=== PATIENT | female | born 1995 | race Caucasian/White ===

== ENCOUNTER 2020-01-01 09:20 | Emergency (ER) | payer OTHER, SELFPAY ==
[2020-01-01 09:30] VITALS: BP 120/76; PULSE 92; RESP 12; TEMP 36.4; O2SAT 99
[2020-01-01] MEDS: ONDANSETRON HCL ODT 4 MG TABLET PO (09:47)
--- NOTE | 2020-01-01 10:10 | ED.NAVMDI ---
HPI - Nausea/Vomiting/Diarrhea General Chief complaint: Nausea/Vomiting/Diarrhea Stated complaint: vomiting/diarrhea Source: patient and RN notes reviewed Limitations: no limitations History of Present Illness HPI Narrative: The patient, a non-smoker/nondrinker with prior appendectomy, presents with vomiting. Patient states she is a G1, P1 and had a test last week. Last 2 days patient notes non-bilious emesis x4-5, associated with diarrhea x3-4. No fever, travel, cough, sore throat, sick family, frequency/urgency/dysuria. Symptoms are mild worse upon eating. Zdtgf-zo-egsw testing is positive, and she has used Zofran in the past for hyperemesis which she prefers. Patient advised will be given 2 anti-emetics and use Compazine preferentially; to go [facility] for covid testing [because of diarrhea], and emergency if worsens Related Data Home Medications Medication Instructions Recorded Confirmed cetirizine 10 mg PO BID 01/01/20 01/01/20 levothyroxine 0.25 mcg PO DAILY 01/01/20 montelukast [Singulair] 10 mg PO DAILY 01/01/20 01/01/20 Allergies Allergy/AdvReac Type Severity Reaction Status Date / Time amoxicillin Allergy Unknown . Verified 04/30/17 21:20 Penicillins Allergy Unknown Verified 11/30/13 10:21 Review of Systems Review of Systems: Narrative: General/Constitutional: No weight loss,fever Eyes: N0: Redness,discharge Ears/Nose/Throat: No: Epistaxis,ear discharge Respiratory: Denies: Hemoptysis Gastrointestinal: ++ Vomiting, Bleeding-rectal Skin: No Lumps, eruption Neurologic: No Focal Weakness,Sz Hematologic: Denies: Petechiae/Purpura Psychiatric: No: Suicida ideationl All Other Systems: Reviewed and Negative [facility] Family History Family History (Updated 11/30/13 @ 10:23 by DOCTOR UNKNOWN) Other Diabetes mellitus Family history of cardiovascular disease Social History Social History Smoking status: Never smoker Alcohol intake: never Comments At time of signature, agree with nursing past medical, surgical, social and family history. There is no relevant family history pertinent to the presenting complaint Exam Narrative: Exam Narrative: General Appearance: post emesis appearing, No distress EYE: PERRLA, Conjunctiva clear Ears: External ear normal Nose: Normal nose Mouth/Throat: Normal appearing, Normal lips Neck: Supple Respiratory: Airway patent, No respiratory distress Abdomen: Soft, Non-tender, No massess, No organomegaly (no rebound/ surgical signs), Hyperactive bowel sounds Musculoskeletal: Full ROM Skin: Warm, Dry Neurological: A&O x3, CN II-X intact Psychiatric: Normal mood, Normal affect Course Vital Signs Vital signs: Vital Signs Temperature 97.6 F 01/01/20 09:30 Pulse Rate 92 01/01/20 09:30 Respiratory Rate 12 01/01/20 09:30 Blood Pressure 120/76 01/01/20 09:30 Pulse Oximetry 99 01/01/20 09:30 Temperature 97.6 F 01/01/20 09:30 Pulse Rate 92 01/01/20 09:30 Respiratory Rate 12 01/01/20 09:30 Blood Pressure 120/76 01/01/20 09:30 Pulse Oximetry 99 01/01/20 09:30 MDM - Nausea/Vomiting/Diarrhea Lab Data Labs: UCG Bedside Result Positive Reference Range: Negative Discharge Plan Discharge Clinical Impression: Complication of , antepartum Vomiting Qualifiers: Vomiting type: unspecified Vomiting Intractability: unspecified Nausea presence: with nausea Qualified Code(s): R11.2 - Nausea with vomiting, unspecified Diarrhea Qualifiers: Diarrhea type: unspecified type Qualified Code(s): R19.7 - Diarrhea, unspecified Patient Disposition: Home, Self-Care Condition: Improved Instructions: Acute Nausea and Vomiting (ED) Additional Instructions: Advised to go to higher-level care facility to higher level testing if not improved , because for early diagnosis of serious problems [dehydration, metabolic, etc], clear specific symptoms do not
== END 2020-01-01 10:08 | disposition home or self-care (01) ==
PROVIDERS: Emergency Provider Emergency Medicine; PCP Family Medicine
DX: O21.9 Vomiting of pregnancy, unspecified (principal); O99.89 Other specified diseases and conditions complicating pregnancy, childbirth and the puerperium; R19.7 Diarrhea, unspecified; Z3A.00 Weeks of gestation of pregnancy not specified
CPT/HCPCS: 81025; 87635; 99213; A9270; C9803; G0463; U0003

== ENCOUNTER → 2020-01-01 10:08 | Outpatient (NON) | payer OTHER, SELFPAY ==
[2020-01-01 19:53] LABS: SARS-CoV-2 RNA PCR Negative
== END ==
PROVIDERS: PCP Family Medicine; Visit Provider Emergency Medicine
DX: R11.10 Vomiting, unspecified (principal); Z20.828 Contact with and (suspected) exposure to other viral communicable diseases
CPT/HCPCS: 87635; C9803; U0003

== ENCOUNTER 2020-04-14 08:51 | Outpatient (CLI) | payer OTHER, SELFPAY ==
--- NOTE | ~2020-04-14 | US_ITS ---
EXAMINATION: US OB /maternal detail DATE: 04/14/2020 09:37 INDICATION: anatomic survey. TECHNIQUE: Real-time ultrasound of the pelvis was performed. COMPARISON: None. FINDINGS: There is a single living fetus in breech presentation. The placenta is posterior, 4.3 cm from the ce rvix. heart rate is 142 beats per minute (bpm). The amniotic fluid volume is subjectively zuleima l. The following biometric data were obtained: Biparietal diameter (BPD): 5.1 cm; head circumference (HC): 19.6 cm; abdominal circumference (AC): 18 .5 cm; femur length (FL): 3.6 cm. These measurements are discordant with low FL/AC ratio. Estimated weight is 500 g +/- 75 g, which correlates with 72nd percentile when 08/19/20 is used as estimated date of delivery. As single measurements, these parameters are each equal to the following estimated gestational ages: BPD: 21 weeks 2 days. HC: 21 weeks 5 days. AC: 23 weeks 2 days. FL: 21 weeks 4 days. estimated gestational age based solely on measurements from this exam is 22 weeks 0 days +/- 1 weeks 4 days. The cerebral ventricles, cerebellum, cisterna magna, nuchal fold, and visualized portions of the spin e are normal. The heart is normal. The diaphragm, stomach, kidneys, and bladder are normal. There are two umbilical arteries to yield a 3-vessel cord. The cord insertion is normal. IMPRESSION: 1. Single living fetus in breech presentation. 2. Estimated weight is 500 g +/- 75 g, which correlates with 72nd percentile when 08/19/20 is u sed as estimated date of delivery. 3. Discordant biometrics with low FL/AC ratio. 4. Normal anatomic survey. Reviewed, dictated and finalized at location A. [facility] IMPRESSION: 1. Single living fetus in breech presentation. 2. Estimated weight is 500 g +/- 75 g, which correlates with 72nd percen tile when 08/19/20 is used as estimated date of delivery. 3. Discordant biometrics with low FL/AC ratio. 4. Normal anatomic survey.
== END 2020-04-14 08:52 | disposition home or self-care (01) ==
PROVIDERS: PCP Family Medicine; Visit Provider Obstetrics & Gynecology
DX: Z34.92 Encounter for supervision of normal pregnancy, unspecified, second trimester (principal); Z3A.22 22 weeks gestation of pregnancy
CPT/HCPCS: 76805

== ENCOUNTER 2020-08-03 11:56 | Inpatient (IN) | payer OTHER, SELFPAY ==
[2020-08-03] VITALS (82 sets, daily range): BP systolic 95–150; BP diastolic 52–129; PULSE 79–146; RESP 16–18; TEMP 36.5–36.9; O2SAT 96–100; BMI 27.2
--- NOTE | 2020-08-03 11:56 | LDADM ---
This patient, Tammie Ortiz, was admitted to Labor/Delivery/Recovery 106 on 08/03/20 at 11:56. Plans for labor, pain management and were discussed with patient. Patient/family oriented to hospital policies and general routines including ID bracelet, bed and alarms, visiting hours, pain management, procedures, bathroom and other care routines, personal items, smoking policy, room service/diet and guest tray routines, security routines, and visiting hours. Patient/Family are encouraged to report perceived risks to care and to ask questions if they do not understand what they are told or what they should do. See OBIX for further documentation.
[2020-08-03 12:41] LABS: Basophils Percent Auto 0.1 % (0.2-1.2); Eosinophils Absolute Auto 0.1 K/mm3 (0-0.3); Eosinophils Percent Auto 0.6 % (0-4.4); Hematocrit 28.7 % (37.0-47.0); Immature Granulocyte Absolute 0.05 K/mm3 (0.00-0.031); Immature Granulocyte Percent A 0.5 % (0-0.5); Lymphocytes Absolute Auto 1.77 K/mm3 (0.9-3.2); Lymphocytes Percent Auto 15.9 % (18.3-44.2); Mean Corpuscular HGB Conc 31.4 g/dl (32-36); Mean Corpuscular Hemoglobin 22.9 pg (26-34); Mean Platelet Volume 11.8 fl (7.4-10.4); Monocytes Absolute Auto 0.7 K/mm3 (0.1-0.6); Monocytes Percent Auto 6.3 % (2.6-8.5); Neutrophils Absolute Auto 8.5 K/mm3 (1.3-6.7); Neutrophils Percent Auto 76.6 % (45.5-73.1); Platelet Count Result 194 k/mm3 (150-375); Red Blood Count 3.93 M/mm3 (4.2-5.4); Red Cell Distribution Width 14.6 % (11.5-14.5); White Blood Count 11.1 K/mm3 (4.5-10.0)
[2020-08-03] MEDS: LACTATED RINGERS 1,000 ML 125 ML IV CONT ×2 (12:45→13:09)
--- NOTE | 2020-08-03 12:59 | P.PNAN_ITS ---
Anes - Initial Pre Proc Eval Procedure: labor epidural Date/Time: 08/03/20 12:59 Surgeon: Darryl Corley MD Pre Op Diagnosis: labor pain Pre Op Diagnosis: Leaking Fluid/ Contractions Patient Data Age: 25 Gender: F Height: 1.74 m Weight: 82.5 kg Last Vital Signs Pulse 111 H 08/03/20 12:58 BP 116/68 08/03/20 12:58 Pulse Ox 99 08/03/20 12:56 Allergies Allergy/AdvReac Type Severity Reaction Status Date / Time Penicillins Allergy Intermediate Hives Verified 07/24/20 12:33 amoxicillin Allergy Unknown . Verified 04/30/17 21:20 Home Medications Medication Instructions Recorded Confirmed Type levothyroxine 0.25 mcg PO DAILY 01/01/20 01/01/20 History ondansetron HCl [Zofran] 4 mg PO Q8H PRN #10 tablet 01/01/20 Rx prenat.vits,donna,xdh-heyi-heoik 1 tablet PO DAILY 07/24/20 07/24/20 History [ #2] Laboratory Tests 08/03/20 08/03/20 12:32 12:32 WBC 11.1 K/mm3 H K/mm3 (4.5-10.0) RBC 3.93 M/mm3 L M/mm3 (4.2-5.4) Hgb 9.0 g/dL L g/dL (12.0-15.0) Hct 28.7 % L % (37.0-47.0) MCV 73.0 fl L fl (80-100) MCH 22.9 pg L pg (26-34) MCHC 31.4 g/dl L g/dl (32-36) RDW 14.6 % H % (11.5-14.5) Plt Count 194 k/mm3 k/mm3 (150-375) MPV 11.8 fl H fl (7.4-10.4) Immature Gran % (Auto) 0.5 % % (0-0.5) Neut % (Auto) 76.6 % H % (45.5-73.1) Lymph % (Auto) 15.9 % L % (18.3-44.2) [place] % (Auto) 6.3 % % (2.6-8.5) Eos % (Auto) 0.6 % % (0-4.4) Baso % (Auto) 0.1 % L % (0.2-1.2) Lymph # (Auto) 1.77 K/mm3 K/mm3 (0.9-3.2) [place] # (Auto) 0.7 K/mm3 H K/mm3 (0.1-0.6) Eos # (Auto) 0.1 K/mm3 K/mm3 (0-0.3) Baso # (Auto) 0.0 K/mm3 K/mm3 (0.0-0.1) Abs Immat Gran (auto) 0.05 K/mm3 H K/mm3 (0.00-0.031) Absolute Neuts (auto) 8.5 K/mm3 H K/mm3 (1.3-6.7) Absolute Nucleated RBC 0.0 K/mm3 K/mm3 (0.0-0.012) Nucleated RBC % 0.0 % % (0.0-0.2) HIV 1&2 Ab/P24 Ag 4thGn Pending Patient hx anesthesia problems: none Family hx anesthesia problems: none [facility] Family History Family History (Updated 07/24/20 @ 12:35 by Thu Mccullough RN) Grandparent Diabetes mellitus Family history of cardiovascular disease Social History Social History Smoking status: Never smoker Alcohol intake: never Substance use: never Spiritual care concerns: No Anes - Eval Final PreProcedure Day of Procedure 08/03/20 12:59 Patient weight: overweight ASA classification: II Anesthesia type and monitoring: regional epidural Informed Consent: The patient's anesthetic plan and its attendant risks and benefits were discussed with the patient/family/POA. Questions were solicited and answers provided to the satisfaction of the patient/family/POA.
[2020-08-03 13:54] LABS: HIV 1/2 Ab P24 Ag Result Negative (Negative)
[2020-08-03] MEDS: ONDANSETRON INJ 4 MG/2 ML VIAL IV PUSH (14:36)
[2020-08-03] MEDS: OXYTOCIN 30 UNITS/NS 500 ML 30 UNITS/500 ML BAG 999 UNITS IV CONT (15:55)
--- NOTE | 2020-08-03 16:09 | PM.IMHP ---
H&P: HPI History of Present Illness Date/Time: 08/03/20 16:09 25 yo at 37w5d who presents after SROM. She reports regular contractions. She denies any vaginal bleeding and endorses good movement. Her has been uncomplicated thus far. Chief Complaint: spontaneous rupture of membranes [facility] Family History Family History (Updated 07/24/20 @ 12:35 by Thu Mccullough RN) Grandparent Diabetes mellitus Family history of cardiovascular disease Social History Social History Smoking status: Former smoker Alcohol intake: never Substance use: never Spiritual care concerns: No Meds Home Medications and Allergies Home Medications Medication Instructions Recorded Confirmed Type levothyroxine 0.25 mcg PO DAILY 01/01/20 01/01/20 History ondansetron HCl [Zofran] 4 mg PO Q8H PRN #10 tablet 01/01/20 Rx prenat.vits,donna,aiu-txuy-wsadc 1 tablet PO DAILY 07/24/20 08/03/20 History [ #2] omeprazole magnesium [Prilosec OTC] 20 mg PO DAILY 08/03/20 08/03/20 History Allergies Allergy/AdvReac Type Severity Reaction Status Date / Time Penicillins Allergy Intermediate Hives Verified 07/24/20 12:33 amoxicillin Allergy Unknown . Verified 04/30/17 21:20 Vital Signs Vital Signs - 24 hr 08/03/20 12:15 08/03/20 12:30 08/03/20 12:45 Temperature Pulse Rate 128 H 124 H 134 H Blood Pressure 115/76 113/69 150/129 H Pulse Oximetry 08/03/20 12:46 08/03/20 12:47 08/03/20 12:49 Temperature Pulse Rate 128 H 122 H Blood Pressure 124/76 114/73 Pulse Oximetry 100 08/03/20 12:50 08/03/20 12:51 08/03/20 12:53 Temperature Pulse Rate 125 H 115 H Blood Pressure 102/69 95/52 L Pulse Oximetry 100 08/03/20 12:54 08/03/20 12:56 08/03/20 12:58 Temperature Pulse Rate 114 H 103 H 111 H Blood Pressure 111/66 116/67 116/68 Pulse Oximetry 99 08/03/20 13:00 08/03/20 13:01 08/03/20 13:02 Temperature Pulse Rate 120 H 107 H Blood Pressure 112/71 119/67 Pulse Oximetry 100 08/03/20 13:04 08/03/20 13:06 08/03/20 13:07 Temperature Pulse Rate 99 109 H 109 H Blood Pressure 120/64 115/67 115/67 Pulse Oximetry 100 08/03/20 13:08 08/03/20 13:10 08/03/20 13:11 Temperature Pulse Rate 108 H 110 H Blood Pressure 111/63 117/64 Pulse Oximetry 100 08/03/20 13:15 08/03/20 13:16 08/03/20 13:21 Temperature Pulse Rate 116 H Blood Pressure 108/57 L Pulse Oximetry 100 100 08/03/20 13:26 08/03/20 13:30 08/03/20 13:31 Temperature 36.8 C Pulse Rate 109 H Blood Pressure 112/68 Pulse Oximetry 99 100 08/03/20 13:36 08/03/20 13:41 08/03/20 13:45 Temperature Pulse Rate 98 Blood Pressure 108/65 Pulse Oximetry 100 100 08/03/20 13:46 08/03/20 13:51 08/03/20 13:56 Temperature Pulse Rate Blood Pressure Pulse Oximetry 100 100 100 08/03/20 14:00 08/03/20 14:01 08/03/20 14:06 Temperature Pulse Rate 116 H Blood Pressure 101/57 L Pulse Oximetry 100 100 08/03/20 14:11 08/03/20 14:15 08/03/20 14:16 Temperature Pulse Rate 110 H Blood Pressure 108/65 Pulse Oximetry 100 98 08/03/20 14:21 08/03/20 14:26 08/03/20 14:30 Temperature Pulse Rate 105 H Blood Pressure 102/63 Pulse Oximetry 98 100 08/03/20 14:31 08/03/20 14:34 08/03/20 14:36 Temperature Pulse Rate 104 H Blood Pressure 104/68 Pulse Oximetry 100 100 08/03/20 14:41 08/03/20 14:45 08/03/20 14:46 Temperature Pulse Rate 101 H Blood Pressure 96/70 L Pulse Oximetry 100 98 08/03/20 14:51 08/03/20 14:56 08/03/20 15:00 Temperature Pulse Rate 104 H Blood Pressure 106/62 Pulse Oximetry 100 100 08/03/20 15:01 08/03/20 15:06 08/03/20 15:11 Temperature Pulse Rate Blood Pressure Pulse Oximetry 99 100 100 08/03/20 15:15 08/03/20 15:16 08/03/20 15:21 Temperature Pulse Rate 109 H Blood Pressure 99/53 L Pulse Oximetry 100 100 08/03/20 15:26 08/03
--- NOTE | 2020-08-03 16:11 | P.PCNOB_ITS ---
OB - Delivery Note Procedure Delivery date: 08/03/20 Procedure: Patient pushed for a spontaneous vaginal delivery. The fetus was delivered atraumatically and placed on the maternal abdomen. The cord was clamped and cut after 1 minute of life. The cord was double clamped and cut and a segment of cord was collected for cord gases. Cord blood was collected for blood type and Coomb's testing. The placenta delivered spontaneously and was noted to be intact. The perineum was inspected and there was a 1st degree perineal laceration and right labial laceration. The lacerations were repaired with 3-0 vicryl in the usual fashion. The uterus was firm and good hemostasis was noted. The patient and fetus were stable in the delivery room. Intrapartal events: None Induction method: none Delivery monitor: external FHT Route of delivery: Episiotomy description: None Laceration Description: Perineal - 1st Degree and Labial (right) Delivery repair: vicryl Specimen: No Quantitative Blood Loss (ml): 250 Anesthesia type: Epidural Disposition: floor () Complications: No immediate complications [place] Baby Date of : 08/03/20 Time of : 15:51 Weeks of gestation at delivery: 37 gender: Male Weight (pounds): 7 Weight (ounces): 1 presentation: vertex position: Right Occiput Anterior Placenta delivery description: Spontaneous cord vessel description: 3 Vessels and Nuchal Cord score one minute: 8 score five minutes: 9
[2020-08-03] MEDS: OXYTOCIN 30 UNITS/NS 500 ML 30 UNITS/500 ML BAG 125 UNITS IV CONT (16:29)
[2020-08-03] MEDS: miSOPROStol 200 MCG TABLET 800 MCG RECTAL (18:17)
[2020-08-03] MEDS: BENZOCAINE 20% AER SPR (*SP) 56 GM CAN 1 SPRAY TOPICAL (18:47)
[2020-08-03] MEDS: IBUPROFEN 600 MG TABLET PO (18:47)
[2020-08-03] MEDS: WITCH HAZEL 40 PADS 1 PAD TOPICAL (18:47)
--- NOTE | 2020-08-03 19:00 | OBPPTRN ---
Patient transferred to post room #282 via wheelchair with baby in bassinet. Support person present. Oriented to unit, room, information board, rooming in, admission packet and security measures. Patient verbalizes understanding.
[2020-08-04] MEDS: IBUPROFEN 600 MG TABLET PO ×3 (03:13→17:29)
[2020-08-04 03:21] VITALS: BP 113/70; PULSE 83; RESP 16; TEMP 36.9; O2SAT 99
[2020-08-04 05:12] LABS: Hematocrit 25.4 % (37.0-47.0); Hemoglobin 7.8 g/dL (12.0-15.0)
--- NOTE | 2020-08-04 08:15 | WPDANLDPN2 ---
Anes-Prog Note L&D Date/Time: 08/04/20 08:15 Comfortable throughout: labor and delivery Neuraxial method: epidural Epidural/Spinal procedure site: clean & non-tender Neuro status: Neuro function grossly intact. Cardiovascular status: normal Respiratory status: normal Airway patency: baseline Mental status: baseline Post-Op hydration status: normal Vital Signs: Last Vital Signs Temp 36.9 C 08/04/20 03:21 Pulse 83 08/04/20 03:21 Resp 16 08/04/20 03:21 BP 113/70 08/04/20 03:21 Pulse Ox 99 08/04/20 03:21 Pain score (VAS): 2 I/O: Intake & Output 08/03/20 08/04/20 08/04/20 23:59 07:59 15:59 Intake Total 500 Output Total 396 Balance 104 Post-procedural complaints: none Patient feedback: Patient satisfied with anesthetic care.
--- NOTE | 2020-08-04 08:17 | PM.OBDSVD ---
DS: Admitting Diagnosis Admitting Diagnosis Admitting Diagnosis: labor OB - DS: Summary OB Procedures : None OB Procedures Intrapartum: Spontaneous Vag Delivery OB Procedures: : None Status at Discharge Functional status at discharge: independent ambulation Overall status at discharge: patient is back to baseline Time Spent with Patient Time attestation: Total time spent providing and/or coordinating discharge services: Time spent: Less than 30 minutes Exam Const: General: comfortable and no acute distress Resp: Effort & Inspection: normal respiratory effort Auscultation: clear to auscultation bilaterally Cardio: Rate: regular rate GI: GI Palp: Yes Soft to palpation Auscultation: normal bowel sounds Other: Fundus firm below umbilicus Psych: Appearance: grossly normal Mental Status: mental status grossly normal Affect: normal affect DS: Data Data Completed and Pending Labs on day of discharge: Labs from last 24 hours 08/04/20 08/03/20 08/03/20 04:59 12:32 12:32 WBC RBC Hgb 7.8 L Hct 25.4 L MCV MCH MCHC RDW Plt Count MPV Immature Gran % (Auto) Neut % (Auto) Lymph % (Auto) [place] % (Auto) Eos % (Auto) Baso % (Auto) Lymph # (Auto) [place] # (Auto) Eos # (Auto) Baso # (Auto) Abs Immat Gran (auto) Absolute Neuts (auto) Absolute Nucleated RBC Nucleated RBC % RPR HIV 1&2 Ab/P24 Ag 4thGn Negative Blood Type A Positive Antibody Screen Negative 08/03/20 08/03/20 12:32 12:32 WBC 11.1 H RBC 3.93 L Hgb 9.0 L Hct 28.7 L MCV 73.0 L MCH 22.9 L MCHC 31.4 L RDW 14.6 H Plt Count 194 MPV 11.8 H Immature Gran % (Auto) 0.5 Neut % (Auto) 76.6 H Lymph % (Auto) 15.9 L [place] % (Auto) 6.3 Eos % (Auto) 0.6 Baso % (Auto) 0.1 L Lymph # (Auto) 1.77 [place] # (Auto) 0.7 H Eos # (Auto) 0.1 Baso # (Auto) 0.0 Abs Immat Gran (auto) 0.05 H Absolute Neuts (auto) 8.5 H Absolute Nucleated RBC 0.0 Nucleated RBC % 0.0 RPR Pending HIV 1&2 Ab/P24 Ag 4thGn Blood Type Antibody Screen Discharge Plan Discharge Discharging Clinician: Jona Dao Patient Disposition: Home, Self-Care Activity: as tolerated and pelvic rest Diet: regular Discharge Instructions: Education: Mom and Baby Guide Given to: Mother Follow-Up: Call your delivering provider's office for an appointment to be seen in: 4 Weeks Mom and baby should come to the [facility] for the follow-up appointment. Appointment Date/Time: August 05, 2020 at 9:00 am What to expect at your follow-up visit: Blood Pressure Check Physical Assessment Call [phone] if you are unable to keep your appointment time. BREAST CARE: * Wear a snug supportive bra. * For engorgement discomfort: Breast Feeding: * Apply warm moist washcloths * Express milk as needed to relieve engorgement * Wear loose clothing * For sore nipples: * Identify correct latch-on * Apply warm moist washcloths before and after nursing * Air dry nipples after nursing * May apply Lansinoh cream to nipples EpISIOTOMY/PERINEAL CARE: * Until bleeding stops, use your monique bottle after urinating * Change your pad frequently throughout the day * You may take sitz baths several times a day (fill your bathtub with warm water and soak for 20 minutes.) Do NOT bathe in the water * No tub baths until seen by your physician - You may shower ACTIVITY: * Rest as much as possible. * Do not exercise or lift anything heavier than your baby (such as laundry or other children.) * Avoid stairs or driving as much as possible. * Do not put anything into the vagina. No douching, tampons, or sexual activity until seen by physician. NOTIFY PHYSICIAN IF YOU HAVE ANY QUESTIONS OR IF ANY OF THE FOLLOWING SYMPTOMS OCCUR: * If your Vagi
[2020-08-04 08:36] VITALS: BP 103/61; PULSE 85; RESP 16; TEMP 36.8; O2SAT 96
[2020-08-04] MEDS: POLYSACCHARIDE IRON COMPLEX 150 MG CAPSULE PO ×2 (10:11→17:31)
[2020-08-04] MEDS: MULTIVIT/MIN/PREN/FOL AC/IRON TABLET 1 TAB PO (10:11)
[2020-08-04] MEDS: DOCUSATE SODIUM 100 MG CAPSULE PO ×2 (10:12→17:31)
[2020-08-04] MEDS: PANTOPRAZOLE 40 MG TABLET PO (10:12)
[2020-08-04 12:27] VITALS: BP 99/59; PULSE 78; RESP 16; TEMP 36.8; O2SAT 99
[2020-08-04 19:00] VITALS: BP 118/77; PULSE 76; RESP 16; TEMP 36.8; O2SAT 98
[2020-08-04] MEDS: TETANUS,DIPHTHERIA,AC PERTUSSIS ADULT (0.5 ML) BOOSTRIX IM (19:35)
[2020-08-05 07:41] LABS: Rapid Plasma Reagin Non-Reactive (NonReactive)
[2020-08-07 07:56] VITALS: BP 113/67; PULSE 80; RESP 20; TEMP 36.6; O2SAT 99
== END 2020-08-04 21:02 | disposition home or self-care (01) | DRG 560 ==
LOC: ANHLDR 13:10 → ANHOB2 08-04 08:18 → ANHLDR 08-06 14:55 → ANHOB2 08-06 14:55
PROVIDERS: Admitting Provider Student in an Organized Health Care Education/Training Program; PCP Family Medicine; Visit Provider Student in an Organized Health Care Education/Training Program
DX: O69.81X0 Labor and delivery complicated by cord around neck, without compression, not applicable or unspecified (principal); Z37.0 Single live birth; Z3A.37 37 weeks gestation of pregnancy; O70.0 First degree perineal laceration during delivery
CPT/HCPCS: 36415; 84112; 85014; 85018; 85025; 86592; 86703; 86850; 86900; 86901; 90715; A9270; G0432; J2405; J2590; J2795; J7120

== ENCOUNTER 2023-04-20 18:20 | Emergency (ER) | payer OTHER, SELFPAY ==
[2023-04-20 18:29] VITALS: BP 128/75; PULSE 112; TEMP 37.2; O2SAT 100
[2023-04-20 19:47] VITALS: BP 119/83; PULSE 90; RESP 18; TEMP 37.2; O2SAT 100
[2023-04-20 19:49] VITALS: BP 119/83; PULSE 82; RESP 18; TEMP 37.2; O2SAT 100
--- NOTE | 2023-04-20 20:39 | ED.GENADULT ---
HPI - General Adult General Chief complaint: Animal Bite Stated complaint: dog bite Time Seen by Provider: 04/20/23 19:27 History of Present Illness HPI narrative: Patient 27-year-old female who presents emergency department with chief complaint of dog bite to the face. Patient reports he was at a friend's house and was playing with her dog and had her face at the dog's face and the dog bit her on the face. The dog is a known pet and is fully vaccinated. The patient reports that her tetanus is up-to-date Related Data Home Medications Medication Instructions Recorded Confirmed levothyroxine 100 mcg tablet 0.25 mcg PO DAILY 01/01/20 01/01/20 prenat.vits,donna,nvt-flun-gnfpx 1 tablet PO DAILY 07/24/20 08/03/20 omeprazole magnesium 20 mg 20 mg PO DAILY 08/03/20 08/03/20 tablet,delayed release (Prilosec OTC) Allergies Allergy/AdvReac Type Severity Reaction Status Date / Time Penicillins Allergy Intermediate Hives Verified 04/20/23 19:55 amoxicillin Allergy Unknown . Verified 04/20/23 19:55 Review of Systems Review of Systems: A 10 system review of systems was completed on the patient and is negative except for what is stated in the HPI. Nursing and ancillary documentation was reviewed. [facility] Family History Family History Grandparent Diabetes mellitus Family history of cardiovascular disease Social History Social History Smoking status: Former smoker Alcohol intake: never Substance use: never Spiritual care concerns: No Exam Narrative: GENERAL: Well-appearing, well-nourished, and in no acute distress. HEAD: Normocephalic, atraumatic. EYES: PERRLA and EOMI. ENT: Nares clear, no rhinorrhea or epistaxis. Mucous membranes moist. There is a 1 cm laceration on the lower face there is a 5 cm laceration on the lower face NECK: Supple. CHEST: Clear to auscultation. No respiratory distress. HEART: Regular rate and rhythm. No murmur heard. Normal peripheral pulses. ABDOMEN: Soft, nontender, nondistended, normal active bowel sounds. EXTREMITIES: Normal range of motion. No edema. SKIN: Warm, dry, no rash. NEURO: No focal deficits. Alert and oriented x3. PSYCH: Normal mood and affect. Course Vital Signs Vital signs: Vital Signs Temperature 37.2 C 04/20/23 18:29 Pulse Rate 112 H 04/20/23 18:29 Blood Pressure 128/75 04/20/23 18:29 Pulse Oximetry 100 04/20/23 18:29 Oxygen Delivery Room Air 04/20/23 18:29 Temperature 37.2 C 04/20/23 19:49 Pulse Rate 82 04/20/23 19:49 Respiratory Rate 18 04/20/23 19:49 Blood Pressure 119/83 04/20/23 19:49 Pulse Oximetry 100 04/20/23 19:49 Oxygen Delivery Room Air 04/20/23 19:47 Procedures Laceration Laceration 1: Date: 04/20/23 Time: 20:44 Site: face Size (cm): 1 Description: linear Depth: simple, single layer Local Anesthetic: lidocaine 1% and with epi Amount of anesthesia used (mL): 2 Pre-repair: wound explored and irrigated extensively ====== Skin Level ====== Skin layer closed with: prolene Size (cm): 5-0 Number of sutures: 3 Technique: simple, interrupted ====== Subcutaneous Layer ====== ====== Muscle Layer ====== ====== Tendon Layer ====== Laceration 2: Date: 04/20/23 Time: 20:45 Site: face Side (If applicable): left Size (cm): 5 Description: linear Depth: involves muscle layer Local Anesthetic: lidocaine 1% and with epi Amount of anesthesia used (mL): 4 Pre-repair: wound explored and irrigated extensively ====== Skin Level ====== Skin layer closed with: prolene Size (cm): 5-0 Number of sutures: 11 Technique: simple, interrupted ====== Subcutaneous Layer ======
[2023-04-20] MEDS: metroNIDAZOLE 500 MG TABLET PO (20:57)
[2023-04-20] MEDS: DOXYCYCLINE HYCLATE 100 MG TABLET PO (20:57)
== END 2023-04-20 20:59 | disposition home or self-care (01) ==
PROVIDERS: Emergency Provider Emergency Medicine
DX: S01.85XA Open bite of other part of head, initial encounter (principal); W54.0XXA Bitten by dog, initial encounter; Z87.891 Personal history of nicotine dependence
CPT/HCPCS: 12011; 12052; 99283; A9270

== ENCOUNTER 2023-04-27 16:02 | Emergency (ER) | payer OTHER, SELFPAY ==
--- NOTE | 2023-04-27 16:03 | ED.WOUNDLAC ---
HPI - Wound/Laceration General Chief Complaint: Skin/Abscess/Foreign Body Stated Complaint: Stitches Removal Time Seen by Provider: 04/27/23 16:03 Source: patient Mode of arrival: ambulatory Limitations: no limitations History of Present Illness HPI narrative: Patient is a 27-year-old female who presents for suture removal. Patient was bit by dog 8 days ago and had a total of 14 external sutures and two internal sutures placed. Patient is finishing course of doxy tomorrow. Patient denies any drainage or open wounds. Related Data Home Medications Medication Instructions Recorded Confirmed levothyroxine 100 mcg tablet 0.25 mcg PO DAILY 01/01/20 01/01/20 prenat.vits,donna,ofl-kaxa-lzgkw 1 tablet PO DAILY 07/24/20 08/03/20 omeprazole magnesium 20 mg 20 mg PO DAILY 08/03/20 08/03/20 tablet,delayed release (Prilosec OTC) Allergies Allergy/AdvReac Type Severity Reaction Status Date / Time Penicillins Allergy Intermediate Hives Verified 04/20/23 19:55 amoxicillin Allergy Unknown . Verified 04/20/23 19:55 Review of Systems Review of Systems: All systems reviewed & are unremarkable except as noted in HPI and below Constitutional: Constitutional: Denies body ache(s), Denies chills, Denies fatigue, Denies fever(s), Denies headache(s), Denies malaise and Denies weakness Eyes: Eyes: Denies blurry vision, Denies irritation and Denies loss of vision ENT: Denies otalgia, Denies headache(s), Denies nasal discharge, Denies sinus pain and Denies sore throat Cardiovascular: Cardiovascular: Denies chest pain, Denies irregular heart rhythm and Denies dyspnea Respiratory: Respiratory: Denies dyspnea Gastrointestinal: Gastrointestinal: Denies abdominal pain, Denies melena, Denies hematochezia, Denies diarrhea, Denies nausea and Denies vomiting Musculoskeletal: Musculoskeletal: Denies back pain, Denies myalgias and Denies arthralgias Integumentary/Breasts: Skin/Breast: Denies pruritus, Denies rash and Reports wounds Neurologic: Denies headache(s), Denies loss of vision and Denies weakness Psychiatric: Psychiatric: Reports no additional psychiatric complaints Endocrine: Endocrine: Denies fatigue [facility] Family History Family History Grandparent Diabetes mellitus Family history of cardiovascular disease Social History Social History Smoking status: Former smoker Alcohol intake: never Substance use: never Spiritual care concerns: No Comments At time of signature, agree with nursing past medical, surgical, social and family history. There is no relevant family history pertinent to the presenting complaint. Exam Const: General: cooperative, healthy appearing, comfortable, no acute distress and well nourished Nutritional Appearance: well nourished Orientation/consciousness: patient oriented x3 Limitations: no limitations HENMT: Head: normal to inspection, normocephalic and atraumatic Ears: hearing grossly normal bilaterally and external ears normal Face/Nose/Sinus: Normal external nose present, normal facial exam and face symmetric Face and sinus: normal facial exam and face symmetric Face images: 1. 3 sutures removed 2. 11 sutures removed Mouth: Yes lip normal Eyes: General: appearance normal, both eyes and all related structures Alignment and Position: alignment normal and position normal Periorbital: periorbital findings normal Eyelids: eyelids normal Pupils: Equal, round and reactive pupils present EOM: EOMs intact bilaterally Neck: Neck: normal visual inspection, full ROM and supple Chest: Chest palpation & inspection: normal inspection of the chest Resp: Effort & Inspection: normal respiratory effort and able to speak in complete sentences Auscultation: clear to auscultation bilaterally Cardio: Rate: regular rate Rhythm: regular rhythm Heart sounds: S1 normal heart sound presen
[2023-04-27 16:10] VITALS: BP 113/67; PULSE 82; RESP 16; TEMP 37.2; O2SAT 99
== END 2023-04-27 16:58 | disposition home or self-care (01) ==
PROVIDERS: Emergency Provider Nurse Practitioner Family
DX: Z48.02 Encounter for removal of sutures (principal); Z87.891 Personal history of nicotine dependence
CPT/HCPCS: 99213; G0463